=== PATIENT | male | born 2005 | race Caucasian/White ===

== ENCOUNTER 2025-06-22 13:24 | Emergency (ER) | payer BC, SELFPAY ==
--- NOTE | ~2025-06-22 | XR_ITS ---
HISTORY: baseball hit area of 1st metacarpal injury,2 days ago COMPARISON: None TECHNIQUE: 3 views of the right hand were performed. FINDINGS: No acute fracture is identified. The joint spaces are preserved. The carpal arcs are intact. Bone mineralization is age-appropriate No significant soft tissue swelling. No radiopaque foreign body is identified. IMPRESSION: No acute fracture or dislocation within the right hand, as detailed above. Reviewed, dictated and finalized at location A.
--- OUTSIDE RECORDS SUMMARY | 2025-06-22 13:28 | XMS_ITS | Clinical Summary ---
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 Gender Identity Not on file Sexual Orientation Not on file Plan of Treatment Health Maintenance Due Date Last Done Comments Annual Physical 2008 HPV Vaccines (1 - Male 3-dos e series) 2020 Meningococcal B Vaccine (1 o f 2 - Standard) 2021 Hepatitis C 2023 DTaP, Tdap and Td Vaccines ( 1 - Tdap) 2024 Hepatitis B Vaccines (1 of 3 - 19+ 3-dose series) 2024 COVID-19 Vaccine (1 - 2023-2 5 season) 2024 Meningococcal Vaccine Aged Out No karina helder eligible based on patient's age to complete this topic Pneumococcal Vaccine: Pediat rics (0 to 5 Years) and At-Risk Patients (6 to 49 Years) Aged Out No longer eligible b ased on patient's age to complete this topic RSV Immunizations Under 20 Months Aged Out No longer eligible based on patient's age to complete this topic
--- NOTE | 2025-06-22 13:32 | ED_ITS ---
HPI - Extremity Injury (Upper) General Chief Complaint: Extremity Injury, Upper Stated Complaint: sore R hand Time Seen by Provider: 06/22/25 14:06 Source: patient and RN notes reviewed Mode of arrival: ambulatory Limitations: no limitations History of Present Illness HPI narrative: 19-year-old male presents with concern for right hand pain. Reports 3 days ago he was hit in the hand by a baseball. Reports mild tenderness and pain with flexion of the thumb. He reports he had taken ibuprofen but has not taken any medications recently. MD complaint: injury to: right and hand Related Data Home Medications ?Medication ?Instructions ?Recorded ?Confirmed ?Last Taken ?Type cetirizine 10 mg tablet mg 06/22/25 Unknown History ipratropium bromide 21 mcg (0.03 intranasal 06/22/25 Unknown History %) nasal spray montelukast 10 mg tablet mg 06/22/25 Unknown History Allergies Allergy/AdvReac Type Severity Reaction Status Date / Time No Known Allergies Allergy Verified 06/22/25 13:28 Review of Systems Review of Systems: CONSTITUTIONAL: Denies malaise, chills, sweats, or fever. SKIN: Denies rash or itching, open skin, laceration, abrasion, redness, warmth, swelling. MUSCULOSKELETAL: Reports right hand pain NEUROLOGIC: Denies numbness, weakness All systems reviewed & are unremarkable except as noted in HPI and below PMFSH Comments At time of signature, agree with nursing past medical, surgical, social and family history. There is no relevant family history pertinent to the presenting complaint Exam Narrative: GENERAL: Well-appearing, well-nourished, and in no acute distress. HEAD: Normocephalic EYES: PERRLA, conjunctivae clear NECK: Supple. CHEST: Speaks in full sentences. No respiratory distress. HEART: Regular rate and rhythm. Normal and equal peripheral pulses. EXTREMITIES: Right hand and digits of hand have normal strength and sensation. 5/5 strength with digit flexion, extension. Range of motion normal. No clubbing, cyanosis, or edema noted. No tenderness. Skin intact. Normal digital cascade with flexion of fingers, median, ulnar and radial nerve intact. Normal sensation of each side of finger. Good capillary refill and radial pulse. Distal capillary refill less than 3 seconds. SKIN: Warn, dry, intact, pink. No rash NEURO: Alert and oriented x3. PSYCH: Normal mood and affect Course Course Emergency Course: Patient is aware of diagnosis, understands and agrees to treatment plan. Anticipatory guidance given. Patient agrees to follow-up as directed and is aware of reasons to seek care at the emergency department. Portions of this record may have been created with voice recognition software Level of Care: Express Care Visit Vital Signs Vital signs: Reviewed. MDM - Extremity Injury (Upper) MDM Narrative Medical decision making narrative: Patients injury and pain is consistent with musculoskeletal etiology. No signs of neurological or vascular compromise on exam. Compartments and tissues are soft without signs of compartment syndrome. Pain is felt appropriate for further evaluation on an outpatient basis. Imaging Data My impression: Images reviewed, interpreted by radiologist, agree, see report. Radiologist's impression: HISTORY: baseball hit area of 1st metacarpal injury,2 days ago COMPARISON: None TECHNIQUE: 3 views of the right hand were performed. FINDINGS: No acute fracture is identified. The joint spaces are preserved. The carpal arcs are intact. Bone mineralization is age-appropriate No significant soft tissue swelling. No radiopaque foreign body is identified. IMPRESSION: No acute fracture or dislocation within the right hand, as detailed above. Critical Care Time Critical Care Time Critical Care Time: No Discharge Plan Discharge Clinical Impression: Contusion of hand Patient Disposition: Home Condition: Stable Instructions: Contusion in Adults (ED) Additional Instructions: Avoid activities that cause pain until the pain subsides. Ice to the area 20-30 minutes 4-6 times a day Elevate above heart Tylenol for lesser pain Ibuprofen regularly for the next 2-3 days for the inflammation Follow up with your primary care provider if the condition is not improving within 1 week. If the condition worsens with numbness, tingling, decrease sensation with weakness seek treatment in the emergency room immediately. Patient Language: Persian Prescriptions: No Action ipratropium bromide 21 mcg (0.03 %) spray,non-aerosol INTRANASAL Follow-up/Referrals: Ana Kaye MD [Primary Care Provider, [facility]] Time of Disposition: 14:09
[2025-06-22 13:39] VITALS: BP 128/73; PULSE 70; RESP 18; TEMP 36.5; O2SAT 100
== END 2025-06-22 14:10 | disposition home or self-care (01) ==
PROVIDERS: Emergency Provider Nurse Practitioner; PCP Family Medicine
DX: S60.221A Contusion of right hand, initial encounter (principal); W21.03XA Struck by baseball, initial encounter
CPT/HCPCS: 73130; 99203; G0463